=== PATIENT | female | born 1995 | race American Indian/Alaskan Native ===

== ENCOUNTER 2020-05-17 19:25 | Emergency (ER) | payer SELFPAY ==
[2020-05-17] MEDS ORDERED: ACETAMINOPHEN 500 MG TAB PO ONE (19:54)
--- NOTE | 2020-05-17 19:59 | Event Note ---
ED Screening Note Date of service: 05/17/20 Time: 19:40 ED Screening Note: Patient is a A0 24 yo AA female who is approximately 8 weeks gestation and who presents to the ED with c/o acute onset persistent severe pelvic pain that radiates to the RLQ area with heavy vaginal bleeding x 1 hours. Patient states that she was seated at home watching TV when she started experiencing these symptoms. Patient denies fall, traumatic injury, heavy lifting, nausea, vomiting, dysuria, urianry urgency and frequency or vaginal discharge and low back pain, fever and chills or diarrhea, nausea and vomiting. This initial assessment/diagnostic orders/clinical plan/treatment(s) is/are subject to change based on patients health status, clinical progression and re- assessment by fellow clinical providers in the ED. Further treatment and workup at subsequent clinical providers discretion. Patient/guardian urged not to elope from the ED as their condition may be serious if not clinically assessed and managed. Initial orders include: CBC, ABO/RHO, CMP, hCG Quant, UA, hCG serum qual, Lipase, Transvag US
[2020-05-17 20:01] VITALS: BP 123/72
[2020-05-17 20:26] LABS: Basophils % (Auto) 0.5 % (0.0-1.8); Hematocrit 35.5 % (30.3-42.9); Hemoglobin 11.8 gm/dl (10.1-14.3); Lymphocytes # (Auto) 1.4 K/mm3 (1.2-5.4); Lymphocytes % (Auto) 18.1 % (13.4-35.0); Mean Corpuscular HGB Conc 33 % (30-34); Mean Corpuscular Volume 83 fl (79-97); Monocytes # (Auto) 0.4 K/mm3 (0.0-0.8); Monocytes % (Auto) 4.8 % (0.0-7.3); Platelet Count 257 K/mm3 (140-440); Red Blood Count 4.27 M/mm3 (3.65-5.03); Red Cell Distribution Width 12.4 % (13.2-15.2)
[2020-05-17 20:45] LABS: Alanine Aminotransferase 15 units/L (7-56); Albumin 4.6 g/dL (3.9-5); Blood Urea Nitrogen 6 mg/dL (7-17); Calcium 9.8 mg/dL (8.4-10.2); Hemolysis Index 0
[2020-05-17 20:49] LABS: BUN/Creatinine Ratio 12
[2020-05-17 20:54] LABS: Bacteria,Urine 1+ /HPF (Negative); Bilirubin,Urine NEG (Negative); Blood,Urine MOD (Negative); Color,Urine Straw (Yellow); Protein,Urine <15 mg/dL mg/dL (Negative); Urobilinogen,Urine < 2.0 mg/dL (<2.0)
--- NOTE | 2020-05-17 21:22 | Ultrasound Report ---
ULTRASOUND OBSTETRIC INDICATION / CLINICAL INFORMATION: Pelvic pain, vaginal bleeding. Clinical Gestational Age (GA): 8.5 weeks.days TECHNIQUE: Transabdominal. COMPARISON: None available. FINDINGS: GESTATIONAL SAC: Well-defined oval shape and intrauterine in location. YOLK SAC: No significant abnormality. EMBRYO/FETUS: No significant abnormality. - [place]-Rump Length = 14.0 cm = 7.5 weeks.days - Heart Rate, beats per minute (if present) = 152 UTERUS: The uterus measures 8.9 x 5.0 x 5.7 cm and demonstrates no significant abnormality. MATERNAL ADNEXA: No significant abnormality. FREE FLUID: None. ADDITIONAL FINDINGS: None. IMPRESSION: 1. Single, living intrauterine with estimated sonographic age of 7.5 weeks.days. 2. No significant sonographic abnormality. Signer Name: Nilay Falcon MD Signed: 05/17/2020 9:18 PM Workstation Name: [id number]
--- NOTE | 2020-05-17 21:27 | Emergency Department Report ---
ED Female HPI - General Chief complaint: Vaginal Bleeding Stated complaint: 8WEEKS CRAMPING/BLEEDING Source: patient Mode of arrival: Ambulatory Limitations: No Limitations - History of Present Illness Initial comments: Patient is a A0 24 yo AA female who is approximately 8 weeks gestation and who presents to the ED with c/o acute onset persistent severe pelvic pain that radiates to the RLQ area with heavy vaginal bleeding x 1 hours. Patient states that she was seated at home watching TV when she started experiencing these symptoms. Patient denies fall, traumatic injury, heavy lifting, nausea, vomiting, dysuria, urianry urgency and frequency or vaginal discharge and low back pain, fever and chills or diarrhea, nausea and vomiting. MD Complaint: vaginal bleeding, pelvic pain -: Sudden, hour(s) (1) Location: suprapubic, other (vaginal) Radiation: non-radiating Severity: moderate Severity scale (0 -10): 5 Quality: cramping, sharp Consistency: intermittent Improves with: none Worsens with: none Are you Now?: Yes (8 weeks gestation) Associated Symptoms: denies other symptoms, vaginal bleeding, abdominal pain. denies: vaginal discharge, nausea/vomiting, fever/chills, headaches, loss of appetite, dysuria, hematuria, seizure, shortness of breath, syncope, weakness, other - Related Data Sexually active: Yes : 1 Para: 0 A: 0 Previous Rx's Medication Instructions Recorded Last Taken Type Acetaminophen [Tylenol] 500 mg PO Q6HR PRN #30 tablet 05/17/20 Unknown Rx Allergies Allergy/AdvReac Type Severity Reaction Status Date / Time No Known Allergies Allergy Verified 05/17/20 19:50 ED Review of Systems ROS: Stated complaint: 8WEEKS CRAMPING/BLEEDING Other details as noted in HPI Constitutional: denies: chills, fever Eyes: denies: eye pain, eye discharge, vision change ENT: denies: ear pain, throat pain Respiratory: denies: cough, shortness of breath, wheezing Cardiovascular: denies: chest pain, palpitations Endocrine: no symptoms reported Gastrointestinal: abdominal pain. denies: nausea, vomiting, diarrhea, hematemesis, hematochezia Genitourinary: urgency, hematuria, abnormal menses (vaginal bleeding). denies: dysuria, frequency, discharge Musculoskeletal: denies: back pain, joint swelling, arthralgia Skin: denies: rash, lesions Neurological: denies: headache, weakness, paresthesias Psychiatric: denies: anxiety, depression Hematological/Lymphatic: denies: easy bleeding, easy bruising ED Past Medical Hx - Past Medical History Previous Medical History?: No - Surgical History Past Surgical History?: No - Social History Smoking Status: Never Smoker Substance Use Type: None - Medications Home Medications: Home Medications Medication Instructions Recorded Confirmed Last Taken Type Acetaminophen [Tylenol] 500 mg PO Q6HR PRN #30 tablet 05/17/20 Unknown Rx ED Physical Exam - General Limitations: No Limitations General appearance: alert, in no apparent distress - Head Head exam: Present: atraumatic, normocephalic, normal inspection - Eye Eye exam: Present: normal appearance, PERRL, EOMI. Absent: scleral icterus, conjunctival injection, nystagmus, periorbital swelling, periorbital tenderness Pupils: Present: normal accommodation - ENT ENT exam: Present: normal exam, normal orophraynx, mucous membranes moist, TM's normal bilaterally, normal external ear exam - Neck Neck exam: Present: normal inspection, full ROM - Respiratory Respiratory exam: Present: normal lung sounds bilaterally. Absent: respiratory distress, wheezes, rhonchi, chest wall tenderness, accessory muscle use - Cardiovascular Cardiovascular Exam: Present: regular rate, normal rhythm, normal heart sounds. Absent: systolic murmur, diastolic murmur, rubs, gallop - GI/Abdominal GI/Abdominal exam: Present: soft, tenderness (Palpable mild suprapubic and RLQ tenderness), normal bowel sounds. Absent: guarding, rebound, rigid, hyperactive bowel sounds, hypoactive bowel sounds, organomegaly, bruit - Bi-manual exam: Present: other (Pelvic exam deferred at this time, prefers own [facility]-Return Agent) - Extremities Exam Extremities exam: Present: normal inspection, full ROM, normal capillary refill - Back Exam Back exam: Present: normal inspection, full ROM. Absent: tenderness, CVA tenderness (R), CVA tenderness (L), muscle spasm, paraspinal tenderness - Neurological Exam Neurological exam: Present: alert, oriented X3, CN II-XII intact, normal gait, reflexes normal - Psychiatric Psychiatric exam: Present: normal affect, normal mood - Skin Skin exam: Present: warm, dry, intact, normal color. Absent: rash ED Course Vital Signs 05/17/20 19:55 Temperature 98.4 F Pulse Rate 94 H Respiratory 16 Rate Blood Pressure 123/72 O2 Sat by Pulse 98 Oximetry ED Medical Decision Making - Lab Data Result diagrams: 05/17/20 19:57 05/17/20 19:57 - Radiology Data Radiology results: report reviewed, image reviewed Findings [facility] [address] [place] [address] Ultrasound Report Signed Patient: SETH WHEATLEY MR#: [id number] : 1995 Acct:[id number] Age/Sex: 24 / F ADM Date: 05/17/20 Loc: ED Attending Dr: Ordering Physician: VINAY MONTES DE OCA Date of Service: 05/17/20 Procedure(s): US OB <= 14 weeks fetus Accession Number(s): [id number] cc: VINAY MONTES DE OCA ULTRASOUND OBSTETRIC INDICATION / CLINICAL INFORMATION: Pelvic pain, vaginal bleeding. Clinical Gestational Age (GA): 8.5 weeks.days TECHNIQUE: Transabdominal. COMPARISON: None available. FINDINGS: GESTATIONAL SAC: Well-defined oval shape and intrauterine in location. YOLK SAC: No significant abnormality. EMBRYO/FETUS: No significant abnormality. - [place]-Rump Length = 14.0 cm = 7.5 weeks.days - Heart Rate, beats per minute (if present) = 152 UTERUS: The uterus measures 8.9 x 5.0 x 5.7 cm and demonstrates no significant abnormality. MATERNAL ADNEXA: No significant abnormality. FREE FLUID: None. ADDITIONAL FINDINGS: None. IMPRESSION: 1. Single, living intrauterine with estimated sonographic age of 7.5 weeks.days. 2. No significant sonographic abnormality. Signer Name: Edilma Falcon MD Signed: 05/17/2020 9:18 PM Workstation Name: [id number] Transcribed By: SS Dictated By: EDILMA FALCON Electronically Authenticated By: EDILMA FALCON Signed Date/Time: 05/17/202117 DD/ 16 TD/TT: - Medical Decision Making This is a A0 24 yo AA female who is approximately 8 weeks gestation and who presents to the ED with c/o acute onset persistent severe pelvic pain that radiates to the RLQ area with heavy vaginal bleeding x 1 hours. Patient states that she was seated at home watching TV when she started experiencing these symptoms. In the ED, patient is alert and oriented x 3 and is in no acute distress. Patient was treated for pain in the ED with Tylenol. Lab test results were reviewed and are all nonactionable. The Transvaginal US shows a single, living intrauterine with estimated sonographic age of 7.5 weeks.days, and with a FHR o f152 bpm. There no significant sonographic abnormality. On reevaluation, patient's pain is wel controlled with medications. Patient was discharged home and advised to maintain a complete pelvic rest, take Tylenol as needed for pain and follow up with her [facility]-Return Agent physician in 3-5 days for reevaluation. Patient was advised to return to the ED immediately if symptoms get worse. - Differential Diagnosis Threatened miscarriage; UTI; Ovarian Cyst; Subchorionic bleed; Ectopic preg Critical care attestation.: If time is entered above; I have spent that time in minutes in the direct care of this critically ill patient, excluding procedure time. ED Disposition Clinical Impression: Threatened miscarriage in early , Abdominal pain during in first trimester, Vaginal bleeding in patient after first trimester Disposition: DC-01 TO HOME OR SELFCARE Is pt being admited?: No Does the pt Need Aspirin: No Condition: Stable Instructions: Threatened Miscarriage, [id number], Abdominal Pain During , [id number], Vaginal Bleeding During , First Trimester, [id number] Additional Instructions: All lab test results are unremarkable. The transvaginal US shows a single intrauterine of approximately 7 weeks and 5 days with a heart rate of 152 bpm. Therefore maintain a complete pelvic rest with no straineous physical activities or sexual activities and heavy lifting, taking Tylenol as needed for pain and follow up with your [facility]-Return Agent physician in 3-5 days for reevaluation, or return to the ED immediately if symptoms get worse. Prescriptions: Acetaminophen [Tylenol] 500 mg PO Q6HR PRN #30 tablet PRN Reason: Pain , Severe (7-10) Referrals: HOLLAND CARLSON MD [Staff Physician] - 3-5 Days Time of Disposition: 21:43 Print Language: [place]
== END 2020-05-17 22:09 | disposition home or self-care (01) ==
LOC: ED 19:25
DX: O20.8 Other hemorrhage in early pregnancy (principal); O20.0 Threatened abortion; Z3A.08 8 weeks gestation of pregnancy; Z79.899 Other long term (current) drug therapy
CPT/HCPCS: 36415; 76801; 80053; 81001; 83690; 84702; 84703; 85025; 86900; 86901

== ENCOUNTER 2020-12-26 10:10 | Inpatient (IN) | payer OTHER ==
[2020-12-26] MEDS ORDERED: LOPERAMIDE 2 MG CAP PO PRN (13:15)
[2020-12-26] MEDS ORDERED: METHYLERGONOVINE MALEATE 0.2 MG/ML VIAL IM PRN (13:15)
[2020-12-26] MEDS ORDERED: ACETAMINOPHEN 325 MG TAB PO PRN (13:15)
[2020-12-26] MEDS ORDERED: ePHEDrine SULFATE 50 MG/1 ML INJ IV PRN ×2 (13:15→16:00)
[2020-12-26] MEDS ORDERED: fentaNYL 100 MCG/2 ML INJ IV PRN (13:15)
[2020-12-26] MEDS ORDERED: MINERAL OIL 30 ML ORAL LIQD PO PRN (13:15)
[2020-12-26] MEDS ORDERED: LIDOCAINE (2%) 20 MG/1 ML VIAL 20 ML MDV INFILTRATI ONE (13:15)
[2020-12-26] MEDS ORDERED: OXYTOCIN 10 UNIT/1 ML INJ IM PRN (13:15)
[2020-12-26] MEDS ORDERED: miSOPROStol 200 MCG TAB PR PRN (13:15)
[2020-12-26] MEDS ORDERED: BUTORPHANOL 2 MG/1 ML INJ IV PRN ×2 (13:15)
[2020-12-26] MEDS ORDERED: LACTATED RINGERS 1,000 ML IV SCH (13:15)
[2020-12-26] MEDS ORDERED: CARBOPROST TROMETHAMINE 250 MCG/1 ML INJ IM PRN (13:15)
[2020-12-26] MEDS ORDERED: TERBUTALINE 1 MG/1 ML INJ SUB-Q PRN (13:15)
--- NOTE | 2020-12-26 13:24 | History and Physical Report ---
History of Present Illness Date of examination: 12/26/20 Date of admission: Chief complaint: Contractions History of present illness: EDC Confirmation: 12/22/2020 Past History : 1 Term Births: 0 Premature Births: 0 Living Children: 0 Para: 0 Mult. Births: 0 Prev : 0 Aborta: 0 Elect. Ab: 0 Spont. Ab: 0 Ectopics: 0 Risk Factors: Smoked Tobacco Use: Never smoker Smokeless Tobacco Use: Never Passive smoke exposure: no Drug use: no HIV high-risk behavior: no Caffeine use: 0 drinks per day Alcohol use: no Exercise: yes Times per week: 2 Type of Exercise: walking Seatbelt use: 100 % Sun Exposure: frequently Dietary Counseling: pn yes Past Medical History: Reviewed history and no changes required: Negative Past Medical History Past Surgical History: Reviewed history and no changes required: positive, ACL repair Past Medical History Anesthesia Complications: negative Anemia: negative Autoimmune Disorder: negative Bleeding Disorder: negative Blood Transfusions: negative Breast Disease: negative Diabetes: negative Heart Disease: negative Hypertension: negative Hepatitis/Liver Disease: negative Kidney Disease/UTI: negative Neurologic/Epilepsy/Migraines: negative Phlebitis/Varicosities: negative Psychiatric: negative Pulmonary Disease/Asthma: negative Thyroid Disease: negative Hospitalizations: negative 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 of genital herpes: no Partner hx. of genital herpes: no Rash, Viral, or Febrile illness since last LMP? no Varicella/Chicken Pox Status: Previous Disease TB Risk: no Genetic History Congenital Heart Defect: Mom: no Dad: no Al Disease: Mom: no Dad: no Thalassemia Mom: no Dad: no Neural Tube Defect Mom: no Dad: no Down's Syndrome Mom: no Dad: no Heath-Sachs Mom: no Dad: no Sickle Cell Disease/Trait Mom: no Dad: no Hemophilia Mom: no Dad: no Muscular Dystrophy Mom: no Dad: no Cystic Fibrosis Mom: no Dad: no [place] Chorea Mom: no Dad: no Mental Retardation Mom: no Dad: no Fragile X Mom: no Dad: no Other Genetic/Chromosomal Disorder Mom: no Dad: no Child w/other defect Mom: no Dad: no Enviromental Exposures Xray Exposure: no Medication, drug, or alcohol use since LMP: no Chemical/Other Exposure: no Exposure to Cat Liter: no Hx of Parvovirus (Fifth Disease): no Occupational Exposure to Children: none Active Medications (reviewed today): None Current Allergies (reviewed today): No known allergies Past History Past Medical History: other (See HPI) Past Surgical History: other (See HPI) 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 (See HPI) Family/Genetic History: other (See HPI) Social history: other (See HPI) - Obstetrical History Expected Date of Delivery: 12/22/20 Actual Gestation: 40 Week(s) 4 Day(s) : 1 Para: 0 Hx # Term Pregnancies: 0 Number of Pregnancies: 1 Spontaneous Abortions: 0 Induced : 0 Number of Living Children: 0 Medications and Allergies Allergies Allergy/AdvReac Type Severity Reaction Status Date / Time No Known Allergies Allergy Verified 05/17/20 19:50 Home Medications Medication Instructions Recorded Confirmed Last Taken Type Acetaminophen [Tylenol] 500 mg PO Q6HR PRN #30 tablet 05/17/20 Unknown Rx Review of Systems All systems: negative - Vital Signs Vital signs: Vital Signs Pulse BP 75 115/59 12/26/20 11:20 12/26/20 11:20 Temp Pulse Resp BP Pulse Ox 98.2 F 80 20 115/59 94 12/26/20 12:05 12/26/20 12:44 12/26/20 12:05 12/26/20 12:05 12/26/20 12:44 - Physical Exam Breasts: Cardiovascular: Regular rate Lungs: Positive: Normal air movement Abdomen: Positive: normal appearance, soft, normal bowel sounds. Negative: distention, tenderness Vulva: both: normal Vagina: Positive: normal moisture Uterus: Positive: normal size, normal contour Adnexa: both: normal Anus/Rectum: Negative: rectal mass, hemorrhoids Extremities: Deep Tendon Reflex Grade: Normal +2 - Obstetrical FHR: category 1 Uterine Contraction Monitor Mode: External Cervical Dilatation: 4.5 (Per handyperson) Cervical Effacement Percentage: 90 station: -2 Uterine Contraction Pattern: Regular Uterine Tone Measurement Phase: Contraction Uterine Contraction Intensity: Moderate Results All other labs normal. Assessment and Plan 25 yo @ 40.4 admitted in labor, cx 4.5/90/-2. Admission in EMR, epidural PRN, will reassess PRN. - Patient Problems (1) 40 weeks gestation of Current Visit: Yes Status: Acute (2) Active labor at term Current Visit: Yes Status: Acute Plan to address problem: Admission orders in EMR, Epidural PRN, anticipate , (3) Primiparous Current Visit: Yes Status: Acute
[2020-12-26] MEDS ORDERED: OXYTOCIN DRIP 30 UNITS/500 ML BAG IV SCH ×2 (14:00)
[2020-12-26 14:47] LABS: Hematocrit 33.3 % (30.3-42.9); Hemoglobin 11.3 gm/dl (10.1-14.3); Mean Corpuscular HGB Conc 34 % (30-34); Mean Corpuscular Volume 84 fl (79-97); Platelet Count 155 K/mm3 (140-440); Red Blood Count 3.97 M/mm3 (3.65-5.03); Red Cell Distribution Width 15.1 % (13.2-15.2)
--- NOTE | 2020-12-26 15:55 | Anesthesia Consultation ---
Anesthesia Consult and Med Hx Date of service: 12/26/20 - Airway Anesthetic Teeth Evaluation: Good ROM Head & Neck: Adequate Mental/Hyoid Distance: Adequate Mallampati Class: Class II Intubation Access Assessment: Probably Good - Pulmonary Exam CTA: Yes - Cardiac Exam Cardiac Exam: RRR - Pre-Operative Health Status ASA Pre-Surgery Classification: ASA2 Proposed Anesthetic Plan: Epidural - Pulmonary Hx Asthma: No - Cardiovascular System Hx Hypertension: No - Central Nervous System Hx Seizures: No Hx Psychiatric Problems: No - Endocrine Hx Renal Disease: No Hx Hypothyroidism: No Hx Hyperthyroidism: No - Hematic Hx Anemia: No Hx Sickle Cell Disease: No - Other Systems Hx Alcohol Use: No
[2020-12-26] MEDS ORDERED: NALOXONE 2 MG/2 ML INJ IV PRN (16:00)
[2020-12-26] MEDS ORDERED: fentaNYL-BUPIV 2 MCG/ML-0.125% 200 MCG/100 ML BAG EPIDURAL SCH (16:00)
--- NOTE | 2020-12-26 16:21 | Progress Note ---
Labor Epidural - Labor Epidural Start Time: 16:11 Stop Time: 16:13 Performed by:: HEATHER DE SANTIAGO Procedure: Patient is requesting epidural for labor pain. H&P, and labs reviewed. Procedure explained, questions answered, consent obtained. Patient in sitting position with blood pressure cuff and pulse ox on and working. Timeout performed immediately before start of procedure. Sterile chlorahexadine 0.5% prep/drape. 3 mL 1% lidocaine skin wheal at L[3]-L[4]. 17-gauge tuohy epidural needle advanced to [id number] with saline at [7] cm. 25-gauge spinal needle advanced until clear, free-flowing CSF. Intrathecal dexmedetomidine [5] mcg administered and needle removed. Epidural catheter advanced to [12] cm, negative aspiration for blood and csf, negative test dose 3 ml 1.5% lidocaine with epinephrine. Sterile sponge and tegaderm applied, followed by tape reinforcement. Patient tolerated procedure well.
--- NOTE | 2020-12-26 16:34 | Event Note ---
Date: 12/26/20 PT comfortable S/P epidural, SVE Cx /-4 and ballotable. Will reassess PRN DASHA Coyle/Sagrario Guzmán CNM
--- NOTE | 2020-12-26 18:57 | Progress Note ---
Assessment and Plan patient comfortable with epidural, clear fluid noted on chux. pt's s/o states water broke around 1800. SVE still 7cm with good decent of head with ctx. Patient turned to far left side with right leg placed in stirrup. Dr. Ornelas updated. - Patient Problems (1) 40 weeks gestation of Current Visit: Yes Status: Acute (2) Active labor at term Current Visit: Yes Status: Acute (3) Primiparous Current Visit: Yes Status: Acute Subjective - Subjective Date of service: 12/26/20 Principal diagnosis: IUP @ 40+4; active labor Interval history: EDC Confirmation: 12/22/2020 Past History : 1 Term Births: 0 Premature Births: 0 Living Children: 0 Para: 0 Mult. Births: 0 Prev : 0 Aborta: 0 Elect. Ab: 0 Spont. Ab: 0 Ectopics: 0 Risk Factors: Smoked Tobacco Use: Never smoker Smokeless Tobacco Use: Never Passive smoke exposure: no Drug use: no HIV high-risk behavior: no Caffeine use: 0 drinks per day Alcohol use: no Exercise: yes Times per week: 2 Type of Exercise: walking Seatbelt use: 100 % Sun Exposure: frequently Dietary Counseling: pn yes Past Medical History: Reviewed history and no changes required: Negative Past Medical History Past Surgical History: Reviewed history and no changes required: positive, ACL repair Past Medical History Anesthesia Complications: negative Anemia: negative Autoimmune Disorder: negative Bleeding Disorder: negative Blood Transfusions: negative Breast Disease: negative Diabetes: negative Heart Disease: negative Hypertension: negative Hepatitis/Liver Disease: negative Kidney Disease/UTI: negative Neurologic/Epilepsy/Migraines: negative Phlebitis/Varicosities: negative Psychiatric: negative Pulmonary Disease/Asthma: negative Thyroid Disease: negative Hospitalizations: negative 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 of genital herpes: no Partner hx. of genital herpes: no Rash, Viral, or Febrile illness since last LMP? no Varicella/Chicken Pox Status: Previous Disease TB Risk: no Genetic History Congenital Heart Defect: Mom: no Dad: no Al Disease: Mom: no Dad: no Thalassemia Mom: no Dad: no Neural Tube Defect Mom: no Dad: no Down's Syndrome Mom: no Dad: no Heath-Sachs Mom: no Dad: no Sickle Cell Disease/Trait Mom: no Dad: no Hemophilia Mom: no Dad: no Muscular Dystrophy Mom: no Dad: no Cystic Fibrosis Mom: no Dad: no [place] Chorea Mom: no Dad: no Mental Retardation Mom: no Dad: no Fragile X Mom: no Dad: no Other Genetic/Chromosomal Disorder Mom: no Dad: no Child w/other defect Mom: no Dad: no Enviromental Exposures Xray Exposure: no Medication, drug, or alcohol use since LMP: no Chemical/Other Exposure: no Exposure to Cat Liter: no Hx of Parvovirus (Fifth Disease): no Occupational Exposure to Children: none Active Medications (reviewed today): None Current Allergies (reviewed today): No known allergies Patient reports: no new complaints (comfortable with epidural) Objective - Vital Signs Vital Signs: Vital Signs - 12hr 12/26/20 12/26/20 12/26/20 11:20 11:21 11:26 Temperature Pulse Rate 75 79 72 Respiratory Rate Blood Pressure 115/59 Blood Pressure [Left] O2 Sat by Pulse 98 97 Oximetry O2 Sat by Pulse Oximetry [ Bilateral Throughout] 12/26/20 12/26/20 12/26/20 11:31 11:36 11:41 Temperature Pulse Rate 72 76 84 Respiratory Rate Blood Pressure Blood Pressure [Left] O2 Sat by Pulse 97 96 96 Oximetry O2 Sat by Pulse Oximetry [ Bilateral Throughout] 12/26/20 12/26/20 12/26/20 11:46 11:51 11:56 Temperature Pulse Rate 73 73 76 Respiratory Rate Blood Pressure Blood Pressure [Left] O2 Sat by Pulse 97 98 98 Oximetry O2 Sat by Pulse Oximetry [ Bilateral Throughout] 12/26/20 12/26/20 12/26/20 12:01 12:05 12:06 Temperature 98.2 F Pulse Rate 85 74 87 Respiratory 20 Rate Blood Pressure Blood Pressure 115/59 [Left] O2 Sat by Pulse 98 96 94 Oximetry O2 Sat by Pulse Oximetry [ Bilateral Throughout] 12/26/20 12/26/20 12/26/20 12:11 12:16 12:21 Temperature Pulse Rate 76 76 79 Respiratory Rate Blood Pressure Blood Pressure [Left] O2 Sat by Pulse 97 97 97 Oximetry O2 Sat by Pulse Oximetry [ Bilateral Throughout] 12/26/20 12/26/20 12/26/20 12:26 12:31 12:36 Temperature Pulse Rate 78 80 81 Respiratory Rate Blood Pressure Blood Pressure [Left] O2 Sat by Pulse 96 96 96 Oximetry O2 Sat by Pulse Oximetry [ Bilateral Throughout] 12/26/20 12/26/20 12/26/20 12:41 12:44 14:04 Temperature Pulse Rate 77 80 90 Respiratory Rate Blood Pressure Blood Pressure [Left] O2 Sat by Pulse 96 94 99 Oximetry O2 Sat by Pulse Oximetry [ Bilateral Throughout] 12/26/20 12/26/20 12/26/20 14:09 14:14 14:19 Temperature Pulse Rate 78 79 79 Respiratory Rate Blood Pressure Blood Pressure [Left] O2 Sat by Pulse 99 99 99 Oximetry O2 Sat by Pulse Oximetry [ Bilateral Throughout] 12/26/20 12/26/20 12/26/20 14:24 14:29 14:34 Temperature Pulse Rate 72 85 79 Respiratory Rate Blood Pressure Blood Pressure [Left] O2 Sat by Pulse 99 100 99 Oximetry O2 Sat by Pulse Oximetry [ Bilateral Throughout] 12/26/20 12/26/20 12/26/20 14:37 14:39 14:43 Temperature Pulse Rate 79 81 76 Respiratory Rate Blood Pressure Blood Pressure [Left] O2 Sat by Pulse 94 98 92 Oximetry O2 Sat by Pulse Oximetry [ Bilateral Throughout] 12/26/20 12/26/20 12/26/20 14:44 15:05 15:10 Temperature Pulse Rate 89 75 74 Respiratory Rate Blood Pressure Blood Pressure [Left] O2 Sat by Pulse 98 99 100 Oximetry O2 Sat by Pulse Oximetry [ Bilateral Throughout] 12/26/20 12/26/20 12/26/20 15:12 15:15 15:20 Temperature Pulse Rate 82 86 77 Respiratory Rate Blood Pressure 128/75 Blood Pressure [Left] O2 Sat by Pulse 99 97 Oximetry O2 Sat by Pulse Oximetry [ Bilateral Throughout] 12/26/20 12/26/20 12/26/20 15:25 15:30 15:35 Temperature Pulse Rate 66 86 97 H Respiratory Rate Blood Pressure Blood Pressure [Left] O2 Sat by Pulse 99 100 100 Oximetry O2 Sat by Pulse Oximetry [ Bilateral Throughout] 12/26/20 12/26/20 12/26/20 15:40 15:45 15:50 Temperature Pulse Rate 74 71 90 Respiratory Rate Blood Pressure Blood Pressure [Left] O2 Sat by Pulse 100 99 100 Oximetry O2 Sat by Pulse Oximetry [ Bilateral Throughout] 12/26/20 12/26/20 12/26/20 15:55 16:00 16:05 Temperature Pulse Rate 79 85 89 Respiratory Rate Blood Pressure Blood Pressure [Left] O2 Sat by Pulse 100 100 100 Oximetry O2 Sat by Pulse Oximetry [ Bilateral Throughout] 12/26/20 12/26/20 12/26/20 16:07 16:10 16:13 Temperature Pulse Rate 88 109 H 111 H Respiratory Rate Blood Pressure 131/68 134/66 Blood Pressure [Left] O2 Sat by Pulse 100 Oximetry O2 Sat by Pulse Oximetry [ Bilateral Throughout] 12/26/20 12/26/20 12/26/20 16:14 16:15 16:16 Temperature Pulse Rate 96 H 90 81 Respiratory Rate Blood Pressure 133/71 130/75 Blood Pressure [Left] O2 Sat by Pulse 100 Oximetry O2 Sat by Pulse Oximetry [ Bilateral Throughout] 12/26/20 12/26/20 12/26/20 16:20 16:22 16:25 Temperature Pulse Rate 71 76 91 H Respiratory Rate Blood Pressure 129/59 Blood Pressure [Left] O2 Sat by Pulse 100 100 Oximetry O2 Sat by Pulse Oximetry [ Bilateral Throughout] 12/26/20 12/26/20 12/26/20 16:30 16:31 16:35 Temperature Pulse Rate 83 77 69 Respiratory Rate Blood Pressure 116/56 Blood Pressure [Left] O2 Sat by Pulse 100 100 Oximetry O2 Sat by Pulse Oximetry [ Bilateral Throughout] 12/26/20 12/26/20 12/26/20 16:39 16:45 16:48 Temperature Pulse Rate 73 71 71 Respiratory Rate Blood Pressure 109/53 Blood Pressure [Left] O2 Sat by Pulse 99 99 Oximetry O2 Sat by Pulse Oximetry [ Bilateral Throughout] 12/26/20 12/26/20 12/26/20 16:50 16:55 17:00 Temperature Pulse Rate 69 70 68 Respiratory Rate Blood Pressure Blood Pressure [Left] O2 Sat by Pulse 100 100 100 Oximetry O2 Sat by Pulse Oximetry [ Bilateral Throughout] 12/26/20 12/26/20 12/26/20 17:02 17:05 17:10 Temperature Pulse Rate 68 73 73 Respiratory Rate Blood Pressure 123/57 Blood Pressure [Left] O2 Sat by Pulse 100 100 Oximetry O2 Sat by Pulse Oximetry [ Bilateral Throughout] 12/26/20 12/26/20 12/26/20 17:15 17:16 17:20 Temperature Pulse Rate 68 69 62 Respiratory Rate Blood Pressure 107/51 Blood Pressure [Left] O2 Sat by Pulse 100 100 Oximetry O2 Sat by Pulse Oximetry [ Bilateral Throughout] 12/26/20 12/26/20 12/26/20 17:25 17:30 17:33 Temperature Pulse Rate 74 65 65 Respiratory Rate Blood Pressure 112/55 Blood Pressure [Left] O2 Sat by Pulse 100 100 Oximetry O2 Sat by Pulse Oximetry [ Bilateral Throughout] 12/26/20 12/26/20 12/26/20 17:35 17:40 17:44 Temperature Pulse Rate 68 71 65 Respiratory Rate Blood Pressure Blood Pressure [Left] O2 Sat by Pulse 100 100 100 Oximetry O2 Sat by Pulse Oximetry [ Bilateral Throughout] 12/26/20 12/26/20 12/26/20 17:48 17:50 17:55 Temperature Pulse Rate 65 66 63 Respiratory Rate Blood Pressure 104/53 Blood Pressure [Left] O2 Sat by Pulse 100 100 Oximetry O2 Sat by Pulse Oximetry [ Bilateral Throughout] 12/26/20 12/26/20 12/26/20 18:00 18:01 18:04 Temperature Pulse Rate 60 63 61 Respiratory Rate Blood Pressure 104/53 Blood Pressure [Left] O2 Sat by Pulse 100 100 Oximetry O2 Sat by Pulse Oximetry [ Bilateral Throughout] 12/26/20 12/26/20 12/26/20 18:09 18:15 18:17 Temperature Pulse Rate 65 67 70 Respiratory Rate Blood Pressure 104/58 Blood Pressure [Left] O2 Sat by Pulse 99 100 Oximetry O2 Sat by Pulse Oximetry [ Bilateral Throughout] 12/26/20 12/26/20 12/26/20 18:19 18:20 18:24 Temperature Pulse Rate 74 61 Respiratory Rate Blood Pressure Blood Pressure [Left] O2 Sat by Pulse 99 100 Oximetry O2 Sat by Pulse 100 Oximetry [ Bilateral Throughout] 12/26/20 12/26/20 12/26/20 18:29 18:30 18:31 Temperature 98.0 F Pulse Rate 72 72 Respiratory Rate Blood Pressure 117/63 Blood Pressure [Left] O2 Sat by Pulse 100 Oximetry O2 Sat by Pulse Oximetry [ Bilateral Throughout] 12/26/20 12/26/20 12/26/20 18:34 18:39 18:44 Temperature Pulse Rate 93 H 58 L 58 L Respiratory Rate Blood Pressure Blood Pressure [Left] O2 Sat by Pulse 99 100 100 Oximetry O2 Sat by Pulse Oximetry [ Bilateral Throughout] 12/26/20 12/26/20 18:48 18:49 Temperature Pulse Rate 58 L 63 Respiratory Rate Blood Pressure 111/63 Blood Pressure [Left] O2 Sat by Pulse 99 Oximetry O2 Sat by Pulse Oximetry [ Bilateral Throughout] - Exam Cardiovascular: Regular rate Lungs: Normal air movement Abdomen: Present: normal appearance, soft Vulva: both: normal Uterus: Present: normal FHR: auscultation normal, category 1 Uterine Contraction Monitor Mode: External Cervical Dilatation: 7 (OP and ascynclitic) Cervical Effacement Percentage: 80 station: -2 Uterine Contraction Frequency (min): 3-5 Uterine Contraction Duration: 60-120 Uterine Contraction Pattern: Regular Uterine Tone Measurement Phase: Contraction Uterine Contraction Intensity: Moderate Extremities: normal - Labs Labs: Laboratory Results - last 24 hr 12/26/20 12/26/20 12/26/20 14:00 14:00 14:00 WBC 8.0 RBC 3.97 Hgb 11.3 Hct 33.3 MCV 84 MCH 29 MCHC 34 RDW 15.1 Plt Count 155 Syphilis IgG Antibody Nonreactive Blood Type O POSITIVE Antibody Screen Negative
--- NOTE | 2020-12-26 19:40 | Event Note ---
Date: 12/26/20 (Deceleration into the 70's noted) Was called into the room for deceleration into the 70's. Upon entering room, repositioned pt in bed. heart rate returned to baseline. Cervical exam /-2. Will continue to monitor closely.
[2020-12-26] MEDS ORDERED: ceFAZolin/STERILE WATER 2 GM/20 ML SYRINGE IV NR (22:00)
[2020-12-26] MEDS ORDERED: ceFAZolin/Water 2 GM/20 ML 2 GM/20 ML SYRINGE IV ONE (22:04)
[2020-12-26] MEDS ORDERED: LIDOCAINE 2%/EPINEPHRINE 1:200,000 VIAL (20 ML) INFILTRATI ONE (22:19)
[2020-12-26] MEDS ORDERED: BUPIVACAINE/PF (0.5%) 5 MG/1 ML 30 ML VIAL INFILTRATI ONE (22:19)
[2020-12-26] MEDS ORDERED: dexAMETHasone 20 MG/5 ML VIAL ONE (22:19)
[2020-12-26] MEDS ORDERED: SODIUM BICARB 8.4% 50 MEQ/50 ML VIAL IV ONE (22:19)
[2020-12-26] MEDS ORDERED: ceFAZolin/STERILE WATER 2 GM/20 ML SYRINGE IV ONE (23:13)
--- NOTE | 2020-12-26 23:14 | Operative Report ---
Operative Report Operative Report: Date of procedure: 12/26/2020 Pre-operative diagnosis: 40 weeks gestation Failure to progress intolerance to labor Remote from delivery Post-operative diagnosis: Same plus body cord x2 Procedure name(s): Primary low transverse section via Pfannenstiel skin incision Surgeon: Dr. Ornelas Lead Sales Consultant: Jyoti Tejada certified nurse master fisher Anesthesia: Epidural QBL: BL 550 mL Urine output: Patient was noted to have gross hematuria upon entry into the operating room prior to the onset of the procedure. Urine output was noted to be 100 cc of blood-tinged urine that was clearing AT the end of the procedure. Fluids: [] Findings: Liveborn female infant weight 7 pounds 3 ounces Apgars of 8 and 9 at 1 and 5 minutes Umbilical cord was noted to be around the torso and leg of the infant. Grossly normal fallopian tubes and ovaries bilaterally Normal uterus Terminal meconium noted upon delivery of the infant Indications: Patient was admitted in active labor. Patient progressed approximately 7 cm dilated 80% effaced and -2 station patient's cervical exam remained unchanged over several hours patient was also noted to have repetitive deep variable decelerations that did not correct with position change. Decision was made to proceed with urgent section at this time. All risk benefits and alternatives were discussed with the patient. Consents were signed and placed on the chart. Procedure: Patient was taking to the operating room. Patient was then prepped and draped in sterile fashion after anesthesia was found to be adequate. A low transverse skin incision was made with the scalpel and carried down to the underlying layer of fascia with the Bovie. The fascia was then incised in the midline and this incision was extended bilaterally with the Bovie. The superior aspect of the fascia was grasped with Isael clamps tented upward and dissected off of the anterior rectus muscles with the scalpel. In similar fashion the inferior aspect of the fascia was grasped with Isael clamps tented upward and dissected off of the anterior rectus muscles. The rectus muscles were then bluntly divided in the midline. The peritoneum was identified and entered into sharply. The bladder blade was placed. The bladder flap was created using the Metzenbaum scissors. The bladder blade was replaced. A lower transverse uterine incision was made with the scalpel and extended bilaterally with the bandage scissors. Artificial rupture of membranes was performed yielding [clear amniotic fluid]. The 's head was then delivered atraumatically. The anterior shoulder and rest of infant delivered without difficulty. The umbilical cord was easily reduced from around the 's torso as well as one of the 's legs. The umbilical cord was clamped x2. The cord was cut. The was then placed in sterile bassinet. [The cord blood was collected.] The placenta was manually extracted in its entirety. The uterus was exteriorized and cleared of all clots and debris. The uterine incision was closed using 0 Vicryl in a running locking fashion. A second imbricating layer of the same suture was then created. The posterior cul-de-sac was copiously irrigated. The uterus was returned to the abdomen. The gutters were also irrigated. Surgicel powder was placed over the uterine incision with excellent hemostasis noted. The anterior rectus muscles were reapproximated using 3-0 Vicryl. The anterior rectus fascia was reapproximated using 0 Vicryl in a running fashion. The subcuticular fat was reapproximated using 2-0 Vicryl in a running fashion. The skin was reapproximated with 4-0 Monocryl in a subcuticular stitch. The patient tolerated the procedure well. Sponge lap and needle counts were all correct x3. Patient was taken to the recovery room awake and in stable condition.
[2020-12-26] MEDS ORDERED: NALOXONE 0.4 MG/1 ML INJ IV PRN (23:16)
[2020-12-26] MEDS ORDERED: WITCH HAZEL/ GLYCERIN PAD TP PRN (23:16)
[2020-12-26] MEDS ORDERED: LANOLIN/ZINC/DIMETHICONE (LANSINOH) 7 GM TP PRN (23:16)
[2020-12-26] MEDS ORDERED: KETOROLAC 30 MG/1 ML INJ IV PRN (23:16)
[2020-12-26] MEDS ORDERED: WATER FOR IRRIG STERILE 1,500 ML BOTTLE IR ONE (23:17)
[2020-12-26] MEDS ORDERED: SODIUM CHLORIDE 0.9% IRR 1,500 ML BOTTLE IR ONE (23:17)
[2020-12-26] MEDS ORDERED: HYDROcodone/ACETAMINOPHEN 5-325 MG TAB PO PRN (23:18)
[2020-12-26] MEDS ORDERED: MORPHINE 4 MG/1 ML INJ IV PRN (23:18)
[2020-12-26] MEDS ORDERED: SIMETHICONE 80 MG CHEW TAB PO PRN (23:18)
[2020-12-26] MEDS ORDERED: D5W/LACTATED RINGERS 1,000 ML IV SCH (23:45)
[2020-12-27] MEDS: HYDROcodone/ACETAMINOPHEN 5-325 MG TAB PO PRN ×4 (04:47→21:16)
[2020-12-27] MEDS ORDERED: TETANUS,DIPH,PERTUSS(ACELL) VACCINE 0.5 ML SYRINGE IM ONE (06:00)
[2020-12-27] MEDS: ceFAZolin/NS 1 GM/50 ML 1 GM/50 ML BAG IV SCH ×2 (06:13→14:20)
[2020-12-27] MEDS: KETOROLAC 30 MG/1 ML INJ IV PRN ×2 (06:13→12:17)
--- NOTE | 2020-12-27 08:44 | Progress Note ---
Assessment and Plan patient resting in bed, states she is tired as baby has not slept. Dressing D&I, VSSAF, H&H ordered for 1100 this morning. - Patient Problems (1) delivery delivered Current Visit: Yes Status: Acute Plan to address problem: Continue postop pathway Advance diet and activity as tolerated Subjective - Subjective Date of service: 12/27/20 Principal diagnosis: postop day 1 <12hrs s/p primary c/s Interval history: EDC Confirmation: 12/22/2020 Past History : 1 Term Births: 0 Premature Births: 0 Living Children: 0 Para: 0 Mult. Births: 0 Prev : 0 Aborta: 0 Elect. Ab: 0 Spont. Ab: 0 Ectopics: 0 Risk Factors: Smoked Tobacco Use: Never smoker Smokeless Tobacco Use: Never Passive smoke exposure: no Drug use: no HIV high-risk behavior: no Caffeine use: 0 drinks per day Alcohol use: no Exercise: yes Times per week: 2 Type of Exercise: walking Seatbelt use: 100 % Sun Exposure: frequently Dietary Counseling: pn yes Past Medical History: Reviewed history and no changes required: Negative Past Medical History Past Surgical History: Reviewed history and no changes required: positive, ACL repair Past Medical History Anesthesia Complications: negative Anemia: negative Autoimmune Disorder: negative Bleeding Disorder: negative Blood Transfusions: negative Breast Disease: negative Diabetes: negative Heart Disease: negative Hypertension: negative Hepatitis/Liver Disease: negative Kidney Disease/UTI: negative Neurologic/Epilepsy/Migraines: negative Phlebitis/Varicosities: negative Psychiatric: negative Pulmonary Disease/Asthma: negative Thyroid Disease: negative Hospitalizations: negative 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 of genital herpes: no Partner hx. of genital herpes: no Rash, Viral, or Febrile illness since last LMP? no Varicella/Chicken Pox Status: Previous Disease TB Risk: no Genetic History Congenital Heart Defect: Mom: no Dad: no Al Disease: Mom: no Dad: no Thalassemia Mom: no Dad: no Neural Tube Defect Mom: no Dad: no Down's Syndrome Mom: no Dad: no Heath-Sachs Mom: no Dad: no Sickle Cell Disease/Trait Mom: no Dad: no Hemophilia Mom: no Dad: no Muscular Dystrophy Mom: no Dad: no Cystic Fibrosis Mom: no Dad: no [place] Chorea Mom: no Dad: no Mental Retardation Mom: no Dad: no Fragile X Mom: no Dad: no Other Genetic/Chromosomal Disorder Mom: no Dad: no Child w/other defect Mom: no Dad: no Enviromental Exposures Xray Exposure: no Medication, drug, or alcohol use since LMP: no Chemical/Other Exposure: no Exposure to Cat Liter: no Hx of Parvovirus (Fifth Disease): no Occupational Exposure to Children: none Active Medications (reviewed today): None Current Allergies (reviewed today): No known allergies Patient reports: pain well controlled, no nauseated [place]: doing well Objective - Vital Signs Latest vital signs: Vital Signs Temp Pulse Resp BP BP Pulse Ox Pulse Ox 12/27/20 08:15 99 12/27/20 08:08 98.1 F 67 20 108/56 97 12/27/20 06:43 18 12/27/20 06:13 18 12/27/20 05:47 18 12/27/20 04:53 98.5 F 69 18 115/62 97 12/27/20 04:47 18 12/27/20 01:28 99 12/27/20 00:41 98.2 F 62 18 121/65 97 12/26/20 23:55 72 20 119/61 12/26/20 23:40 74 17 109/57 12/26/20 23:25 77 18 121/54 12/26/20 23:20 74 19 111/58 12/26/20 23:15 79 16 113/58 12/26/20 23:10 82 23 108/58 12/26/20 23:05 98.3 F 82 16 118/55 12/26/20 21:51 82 100 12/26/20 21:47 80 127/102 12/26/20 21:45 80 100 12/26/20 21:40 69 100 12/26/20 21:35 67 100 12/26/20 21:31 58 L 122/60 12/26/20 21:30 63 100 12/26/20 21:25 80 100 12/26/20 21:20 77 100 12/26/20 21:17 77 146/55 12/26/20 21:14 78 100 12/26/20 21:09 79 100 12/26/20 21:04 66 100 12/26/20 21:02 65 125/58 12/26/20 20:59 69 100 12/26/20 20:54 69 100 12/26/20 20:49 62 100 12/26/20 20:46 60 123/59 12/26/20 20:44 63 100 12/26/20 20:39 65 100 12/26/20 20:34 58 L 100 12/26/20 20:32 58 L 123/63 12/26/20 20:29 71 100 12/26/20 20:24 62 100 12/26/20 20:19 60 100 12/26/20 20:16 67 124/63 12/26/20 20:14 62 100 12/26/20 20:09 69 100 12/26/20 20:04 61 100 12/26/20 20:01 63 118/58 12/26/20 19:59 64 100 12/26/20 19:54 65 100 12/26/20 19:49 70 100 12/26/20 19:46 64 115/56 12/26/20 19:44 69 99 12/26/20 19:39 67 100 12/26/20 19:34 71 100 12/26/20 19:31 67 120/63 12/26/20 19:29 69 100 12/26/20 19:24 69 100 12/26/20 19:19 60 99 12/26/20 19:18 65 110/56 12/26/20 19:17 59 L 109/58 12/26/20 19:14 68 99 12/26/20 19:09 61 98 12/26/20 19:04 65 113/66 99 12/26/20 19:00 99.8 F H 100 12/26/20 18:59 57 L 99 12/26/20 18:54 69 99 12/26/20 18:49 63 99 12/26/20 18:48 58 L 111/63 12/26/20 18:44 58 L 100 12/26/20 18:39 58 L 100 12/26/20 18:34 93 H 99 12/26/20 18:31 72 117/63 12/26/20 18:30 98.0 F 12/26/20 18:29 72 100 12/26/20 18:24 61 100 12/26/20 18:20 74 99 12/26/20 18:19 100 12/26/20 18:17 70 104/58 12/26/20 18:15 67 100 12/26/20 18:09 65 99 12/26/20 18:04 61 100 12/26/20 18:01 63 104/53 12/26/20 18:00 60 100 12/26/20 17:55 63 100 12/26/20 17:50 66 100 12/26/20 17:48 65 104/53 12/26/20 17:44 65 100 12/26/20 17:40 71 100 12/26/20 17:35 68 100 12/26/20 17:33 65 112/55 12/26/20 17:30 65 100 12/26/20 17:25 74 100 12/26/20 17:20 62 100 12/26/20 17:16 69 107/51 12/26/20 17:15 68 100 12/26/20 17:10 73 100 12/26/20 17:05 73 100 12/26/20 17:02 68 123/57 12/26/20 17:00 68 100 12/26/20 16:55 70 100 12/26/20 16:50 69 100 12/26/20 16:48 71 109/53 12/26/20 16:45 71 99 12/26/20 16:39 73 99 12/26/20 16:35 69 100 12/26/20 16:31 77 116/56 12/26/20 16:30 83 100 12/26/20 16:25 91 H 100 12/26/20 16:22 76 129/59 12/26/20 16:20 71 100 12/26/20 16:16 81 130/75 12/26/20 16:15 90 100 12/26/20 16:14 96 H 133/71 12/26/20 16:13 111 H 134/66 12/26/20 16:10 109 H 100 12/26/20 16:07 88 131/68 12/26/20 16:05 89 100 12/26/20 16:00 85 100 12/26/20 15:55 79 100 12/26/20 15:50 90 100 12/26/20 15:45 71 99 12/26/20 15:40 74 100 12/26/20 15:35 97 H 100 12/26/20 15:30 86 100 12/26/20 15:25 66 99 12/26/20 15:20 77 97 12/26/20 15:15 86 99 12/26/20 15:12 82 128/75 12/26/20 15:10 74 100 12/26/20 15:05 75 99 12/26/20 14:44 89 98 12/26/20 14:43 76 92 12/26/20 14:39 81 98 12/26/20 14:37 79 94 12/26/20 14:34 79 99 12/26/20 14:29 85 100 12/26/20 14:24 72 99 12/26/20 14:19 79 99 12/26/20 14:14 79 99 12/26/20 14:09 78 99 12/26/20 14:04 90 99 12/26/20 12:44 80 94 12/26/20 12:41 77 96 12/26/20 12:36 81 96 12/26/20 12:31 80 96 12/26/20 12:26 78 96 12/26/20 12:21 79 97 12/26/20 12:16 76 97 12/26/20 12:11 76 97 12/26/20 12:06 87 94 12/26/20 12:05 98.2 F 74 20 115/59 96 12/26/20 12:01 85 98 12/26/20 11:56 76 98 12/26/20 11:51 73 98 12/26/20 11:46 73 97 12/26/20 11:41 84 96 12/26/20 11:36 76 96 12/26/20 11:31 72 97 12/26/20 11:26 72 97 12/26/20 11:21 79 98 12/26/20 11:20 75 115/59 Intake and Output 12/26/20 12/27/20 12/27/20 23:59 07:59 15:59 Intake Total 800 740 Output Total 500 1400 Balance 300 -660 Intake: IV 800 500 Oral 240 Output: Urine 500 1400 Indwelling Catheter 800 Uretheral (Elias) 400 100 Other: Total, Intake Amount 240 Total, Output Amount 800 Estimated Blood Loss 550 - Exam Breasts: Present: normal Cardiovascular: Present: Regular rate Lungs: Present: Clear to auscultation, Normal air movement Abdomen: Present: normal appearance, soft Vulva: both: normal Uterus: Present: normal, firm, fundal height below umbilicus Extremities: Present: normal Incision: Present: normal, dry, dressed
--- NOTE | 2020-12-27 09:28 | Post Anesthesia Evaluation ---
- Post Anesthesia Evaluation Patient Participated: Yes Airway Patent: Yes Stable Respiratory Function: Yes Nausea/Vomiting: No Temp > 96.8F: Yes Pain Manageable: Yes Adequeate Hydration: Yes Anesthesia Complications: No Block Receding Appropriately: Yes
[2020-12-27 11:16] LABS: Hematocrit 32.6 % (30.3-42.9); Hemoglobin 10.7 gm/dl (10.1-14.3)
[2020-12-28] MEDS: IBUPROFEN 800 MG TAB PO PRN ×4 (00:17→22:09)
[2020-12-28] MEDS: HYDROcodone/ACETAMINOPHEN 5-325 MG TAB PO PRN ×3 (02:37→18:16)
--- NOTE | 2020-12-28 08:15 | Progress Note ---
Assessment and Plan A: 25 y.o. s/p primary , POD #2. P: Continue with care. Encouraged ambulation. Advance diet as tolerated. Subjective - Subjective Date of service: 12/28/20 (Pt doing okay) Principal diagnosis: s/p primary , POD #2 Patient reports: appetite normal, voiding normally, pain well controlled, flatus, ambulating normally [place]: doing well Objective - Vital Signs Latest vital signs: Vital Signs Temp Pulse Resp BP Pulse Ox Pulse Ox 12/28/20 07:22 97.9 F 77 18 108/62 97 12/28/20 07:00 18 12/28/20 06:00 18 12/28/20 03:37 18 12/28/20 02:37 18 12/28/20 01:17 18 12/28/20 00:20 98.7 F 78 18 113/50 97 12/28/20 00:17 18 12/27/20 22:16 18 12/27/20 21:16 18 12/27/20 20:01 98.3 F 86 18 128/59 99 12/27/20 20:00 100 12/27/20 16:09 97.9 F 104 H 18 118/76 95 12/27/20 16:05 18 12/27/20 12:33 98.1 F 69 20 101/62 96 12/27/20 12:17 18 Intake and Output 12/27/20 12/28/20 12/28/20 22:59 06:59 14:59 Intake Total 240 480 120 Output Total 100 300 Balance 140 180 120 Intake: Oral 240 480 120 Output: Urine 100 300 Void 100 300 Other: Total, Intake Amount 240 480 120 Total, Output Amount 100 300 # Voids Void 1 1 - Exam Narrative Exam: Pt with some abdominal distention. Passing flatus, bowel sound normal. Encouraged patient to get up and walk around. Also to wear abdominal binder when out of bed walking. Breasts: Present: deferred Cardiovascular: Present: Regular rate Lungs: Present: Normal air movement Abdomen: Present: normal appearance, soft, distention, normal bowel sounds Vulva: both: normal Uterus: Present: normal, firm Incision: Present: normal, dry, intact, other (No drainage or s/sx of infection noted. )
[2020-12-29] MEDS: HYDROcodone/ACETAMINOPHEN 5-325 MG TAB PO PRN ×2 (00:14→10:26)
[2020-12-29] MEDS: IBUPROFEN 800 MG TAB PO PRN (05:47)
--- NOTE | 2020-12-29 08:47 | Discharge Summary ---
Providers - Providers Date of Admission: 12/26/20 13:15 Date of discharge: 12/29/20 Attending physician: DANTE HAGAN 12/27/20 08:00 Consult to Senior Statistician [CONS] Routine Reason For Exam: assistance with Primary care physician: DANTE HAGAN Hospitalization Reason for admission: Labor Condition: Good Pertinent studies: post op H&H 10.7/32.6 Procedures: Primary c/s [facility] Hospital course: uncomplicated c/s and postop course Disposition: 01 HOME / SELF CARE / HOMELESS Final Discharge Diagnosis (Prints w/discharge instructions): postop c/s Time spent for discharge: 20 - Discharge Diagnoses (1) delivery delivered Status: Acute Core Measure Documentation - Palliative Care Palliative Care/ Comfort Measures: Not Applicable - Core Measures Any of the following diagnoses?: none Exam - Constitutional Vitals: Temp Pulse Resp BP Pulse Ox 98.3 F 89 18 123/60 97 12/29/20 00:17 12/29/20 00:17 12/29/20 05:47 12/29/20 00:17 12/29/20 00:17 General appearance: Present: no acute distress, well-nourished - EENT Eyes: Present: PERRL ENT: hearing intact, clear oral mucosa - Neck Neck: Present: supple, normal ROM - Respiratory Respiratory effort: normal Respiratory: bilateral: CTA - Cardiovascular Rhythm: regular Heart Sounds: Absent: rub, click - Extremities Extremities: No edema Peripheral Pulses: within normal limits - Abdominal General gastrointestinal: Present: soft, non-tender, non-distended, normal bowel sounds Female genitourinary: Present: normal - Integumentary Integumentary: Present: clear, warm, dry - Musculoskeletal Musculoskeletal: gait normal, strength equal bilaterally - Psychiatric Psychiatric: appropriate mood/affect, intact judgment & insight - Neurologic Neurologic: CNII-XII intact, moves all extremities - Additional findings Additional findings: Fundus firm, lochia scant, incision D&I Plan Activity: advance as tolerated Diet: regular Wound: open to air, keep clean and dry Follow up with: DANTE HAGAN MD [Primary Care Provider] - 7 Days (Congratulations! Please call [phone] to schedule your incision check in 1 week. Call for any questions or concerns.) Prescriptions: Docusate Sodium [Colace] 100 mg PO BID PRN #60 capsule PRN Reason: Constipation Ibuprofen [Motrin 800 MG tab] 800 mg PO Q8HR PRN #30 tablet PRN Reason: Pain oxyCODONE /ACETAMINOPHEN [Percocet 5/325 mg] 1 - 2 tab PO Q6HR PRN #20 tablet PRN Reason: Pain
[2020-12-29 13:35] VITALS: BP 122/63
== END 2020-12-29 13:35 | disposition home or self-care (01) | DRG 766 ==
LOC: TRG 10:10 → APU 10:11 → LD 13:15 → TRG 13:15 → OB 12-27 00:42
PROVIDERS: ADMIT Obstetrics & Gynecology; ATTEND Obstetrics & Gynecology
PROC: 10D00Z1 Extraction of Products of Conception, Low, Open Approach (ICD-10-PCS; principal; 2020-12-26)
PROC: 3E0234Z Introduction of Serum, Toxoid and Vaccine into Muscle, Percutaneous Approach (ICD-10-PCS; 2020-12-27)
DX: O77.9 Labor and delivery complicated by fetal stress, unspecified (principal); Z20.822 Contact with and (suspected) exposure to COVID-19; Z37.0 Single live birth; Z3A.40 40 weeks gestation of pregnancy; Z23 Encounter for immunization
CPT/HCPCS: 36415; 59025; 85014; 85018; 85027; 86592; 86850; 86900; 86901; 88307; 99211; G0378; A6250; G0463; J0690; J1100; J1885; J2590; J3490; J7120; J7121; U0003